=== PATIENT | male | born 1950 | race African-American/Black ===

== ENCOUNTER → 2017-04-17 | Outpatient (CLI) | payer MEDICARE, MEDICAID ==
[~2017-04-17] MED LIST: AMLO10TA80 PO; ASPI-1035 PO; BENA40TA3 PO; CHOL100026 PO; CLON0.2T PO; CYCL30DR EACHEYE; D-ME118S13 PO; IOHEXOL-300 100 ML BOTTLE ONE; METF850T2 PO; METO50TA5 PO; NAPR-681 PO; OMEP20TA80 PO; SIMV20TA6 PO; SODIUM CHLORIDE 0.9% 10ML VIAL ONE
== END | disposition home or self-care (01) ==
LOC: NM 07:41
PROVIDERS: ATTEND Urology
DX: C61 Malignant neoplasm of prostate (principal); N40.0 Benign prostatic hyperplasia without lower urinary tract symptoms; K57.30 Diverticulosis of large intestine without perforation or abscess without bleeding; M47.816 Spondylosis without myelopathy or radiculopathy, lumbar region; K40.90 Unilateral inguinal hernia, without obstruction or gangrene, not specified as recurrent; K42.9 Umbilical hernia without obstruction or gangrene
CPT/HCPCS: 71020; 72194; 78306; A4216; A9503; Q9967